=== PATIENT | male | born 2000 | race Caucasian/White ===

== ENCOUNTER 2024-02-08 20:15 | Emergency (ER) | payer OTHER ==
[~2024-02-08] VITALS: Ht 180.3 cm; Wt 70.3 kg
[2024-02-08 21:17] VITALS: BP 141/77; TEMP 98.1; O2SAT 98
== END 2024-02-09 00:44 | disposition left against medical advice (07) ==
LOC: ER 20:22
DX: S09.90XA Unspecified injury of head, initial encounter (principal); Z53.21 Procedure and treatment not carried out due to patient leaving prior to being seen by health care provider; X58.XXXA Exposure to other specified factors, initial encounter; Y93.89 Activity, other specified; Y92.89 Other specified places as the place of occurrence of the external cause; Y99.8 Other external cause status

== ENCOUNTER 2024-02-15 17:05 | Emergency (ER) | payer OTHER ==
[~2024-02-15] VITALS: Ht 180.3 cm; Wt 56.7 kg
--- NOTE | 2024-02-15 17:45 | NUR ---
The patient bibs with c/o non traumatic right upper ext. pain today. Rates pain 6/10.
[2024-02-15 17:46] VITALS: BP 112/59; TEMP 97.9
[2024-02-15] MEDS ORDERED: IBUP-1955 PO (18:12)
[2024-02-15 19:19] VITALS: O2SAT 100
--- NOTE | 2024-02-15 19:19 | NUR ---
Patient discharged to home in stable condition. Written and verbal after care instructions given. Patient verbalizes understanding of instruction.
== END 2024-02-15 19:20 | disposition home or self-care (01) ==
LOC: ER 17:15
DX: M79.601 Pain in right arm (principal); M79.89 Other specified soft tissue disorders; Z87.81 Personal history of (healed) traumatic fracture
CPT/HCPCS: 73090-TC; 73130-TC